=== PATIENT | female | born 1940 | race Caucasian/White ===

== ENCOUNTER → 2016-11-07 | Outpatient (CLI) | payer MEDICARE, OTHER ==
[~2016-11-07] MED LIST: ACETAMINOPHEN PO; ADVIL200 M2 PO; ALLEGRA PO; AMOXICILLIN; ASPIRIN PO; ASPIRIN81 M1 PO; ASPIRIN81 M2 PO; AUGMENTIN PO; BIOTIN; CALTRATE 600+D PO; CERTAGEN PO; COATED ASPIRIN325 M1 PO; FLEXERIL PO; HERBAL LAX; HERBAL LAXATIVE; HYDROCODONE-APA1 T54 PO; LEVOTHYROXINE100 MCG PO; LOTREL 5-20 MG1 EACH PO; MELOXICAM15 MG PO; MUCINEX DM TABL1 BOX PO; NAPROXEN PO; NEURONTIN PO; PERCOCET5/325; PERCOCET5/325 PO; PERCODAN TABLET1 TA1 PO; PRILOSEC PO; TYLENOL #3 PO; VITAMIN C OTC DAILY; VITAMIN D250000 UNIT PO; ZEGERID 20 MG1 EACH PO; ZEGERID 40 MG C1 CAP PO; ZOLOFT PO; ZYRTEC; [UNRECOGNIZED DRUG - OTHER]; [UNRECOGNIZED DRUG - OTHER]
== END | disposition home or self-care (01) ==
LOC: CSSDAY 09:25
DX: M81.0 Age-related osteoporosis without current pathological fracture (principal)
CPT/HCPCS: 82310; 96372; J0897

== ENCOUNTER → 2017-05-16 | Outpatient (CLI) | payer MEDICARE, OTHER | END | disposition home or self-care (01) | LOC: CSSDAY 09:00 | DX: M81.0 Age-related osteoporosis without current pathological fracture (principal) | CPT/HCPCS: 82310; 96372; J0897 ==